=== PATIENT | female | born 1955 | race Caucasian/White ===

== ENCOUNTER → 2020-01-22 | Outpatient (CLI) | payer BC ==
[~2020-01-22] MED LIST: CELEXA40 MG PO; FLEXERIL10 MG PO; LISINOPRIL2.5 MG PO; LISINOPRIL20 MG PO; PREDNICOT10 MG PO; SYNTHROID,LEVO88 MCG PO; THYROID; VICODIN 5/500 505 MG PO; ZESTRIL2.5 MG PO
== END | disposition home or self-care (01) ==
LOC: COVID19 12:35
PROVIDERS: ATTEND Family Medicine
DX: U07.1 COVID-19 (principal)